=== PATIENT | female | born 1995 | race Hispanic/Latino ===

== ENCOUNTER 2019-02-07 01:22 | Inpatient (IN) | payer OTHER ==
[~2019-02-07] VITALS: Ht 157.5 cm; Wt 82.6 kg
[2019-02-07] VITALS (7 sets, daily range): BP systolic 98–140; BP diastolic 57–89
[2019-02-07] MEDS ORDERED: LACTATED RINGERS 1000ML IV PRN (01:45)
[2019-02-07 02:11] LABS: APPEARANCE,URINE Clear (CLEAR); BILIRUBIN,URINE Negative (NEGATIVE); COLOR,URINE Dark Yellow (YELLOW); GLUCOSE, URINE (UA) 250 mg/dL (NEGATIVE); KETONES,URINE Trace mg/dL (NEGATIVE); LEUKOCYTE ESTERASE ,URINE Trace (NEGATIVE); NITRATE,URINE Negative (NEGATIVE); OCCULT BLOOD,URINE Moderate (NEGATIVE); PH,URINE 6.5 (5.0-8.0); PROTEIN,URINE Trace mg/dL (NEGATIVE)
[2019-02-07 02:18] LABS: AMPHET/METH SCREEN,URINE NEGATIVE (NEGATIVE); BACTERIA,URINE None Seen /HPF (None Seen); BARBITURATE SCREEN, URINE NEGATIVE (NEGATIVE); BENZODIAZEPINES SCREEN,URINE NEGATIVE (NEGATIVE); CANNABINOID SCREEN,URINE NEGATIVE (NEGATIVE); COCAINE SCREEN,URINE NEGATIVE (NEGATIVE); OPIATE SCREEN,URINE NEGATIVE (NEGATIVE); PHENCYCLIDINE SCREEN,URINE NEGATIVE (NEGATIVE); RBC,URINE None Seen /HPF (0-1); SQUAMOUS EPITHELIAL CELL,UR Moderate /HPF (0-2)
[2019-02-07] MEDS ORDERED: FOLI0.8C PO (02:54)
[2019-02-07] MEDS ORDERED: LACTATED RINGERS 1000ML 1,000 ML IV PRN (03:06)
[2019-02-07] MEDS ORDERED: AMPICILLIN 2GM+NS 100ML 100 ML IV ONE (03:10)
[2019-02-07] MEDS ORDERED: AMPICILLIN 2GM+NS 100ML 100 ML IV SCH (03:15)
[2019-02-07 04:34] LABS: HEMATOCRIT 40.4 % (36-48); MEAN CORPUSCULAR HEMOGLOBIN 30.1 pg (27.0-33.0); MEAN CORPUSCULAR HGB CONC 34.7 g/dL (32.0-36.0); MEAN CORPUSCULAR VOLUME 86.9 fL (79-99); PLATELET COUNT (AUTO) 265 K/uL (130-400); RED BLOOD CELL COUNT(AUTO) 4.65 MIL/uL (4.00-5.50); RED CELL DISTRIBUTION WIDTH 13.7 % (11.0-15.5); WHITE BLOOD COUNT (AUTO) 10.4 K/uL (4.8-10.8)
[2019-02-07] MEDS ORDERED: CEFAZOLIN SODIUM 1 GM VIAL ONE (05:04)
[2019-02-07] MEDS ORDERED: DURAMORPH PF1 MG/ML 10ML AMP IV ONE (05:33)
[2019-02-07] MEDS ORDERED: FENTANYL CITRATE PF 50 MCG/1 ML 2ML VIAL ONE (05:33)
[2019-02-07] MEDS ORDERED: ONDANSETRON HCL 4 MG/2 ML VIAL ONE (05:47)
[2019-02-07] MEDS ORDERED: OXYTOCIN 10 USP UNITS/ML ONE (05:48)
[2019-02-07] MEDS ORDERED: PHENYLEPHRINE HCL 10 MG/ML 1ML VIAL IV ONE (05:57)
[2019-02-07] MEDS ORDERED: CEFAZOLIN SODIUM 1 GM VIAL IVP SCH (07:00)
[2019-02-07] MEDS ORDERED: SODIUM CHLORIDE 0.9% 10 ML VIAL IVP PRN (07:15)
[2019-02-07] MEDS ORDERED: MEPERIDINE-PF 75 MG/ML SYG IM PRN (07:15)
[2019-02-07] MEDS ORDERED: OXYTOCIN-LR 20 UNITS/1000 ML 1,000 ML IV PRN (07:15)
[2019-02-07] MEDS ORDERED: PROMETHAZINE HCL 25 MG/ML 1ML AMPULE IM PRN (07:15)
[2019-02-07 07:59] LABS: HEMOGLOBIN A1C 5.3 % (4.0-6.0)
[2019-02-07 13:23] LABS: RAPID PLASMA REAGIN NONREACTIVE (NONREACTIVE)
[2019-02-07] MEDS: CEFAZOLIN 3GM /D5W 100ML 100 ML IV SCH ×2 (14:16→21:22)
[2019-02-07] MEDS: DEXTROSE 5 %-0.45 % NACL 1,000 ML IV PRN ×2 (14:16→21:22)
[2019-02-07] MEDS: AMPICILLIN 1GM+NS 50ML 50 ML IV SCH ×2 (19:15→23:15)
[2019-02-07] MEDS ORDERED: MEPERIDINE-PF 25 MG/ML SYG ONE (21:04)
[2019-02-07] MEDS ORDERED: MEPERIDINE-PF 50 MG/ML SYG ONE (21:04)
[2019-02-08 03:17] VITALS: BP 106/67
[2019-02-08] MEDS: DEXTROSE 5 %-0.45 % NACL 1,000 ML IV PRN (05:02)
--- NOTE | 2019-02-08 06:55 | NUR ---
Paredes Catheter : Paredes Catheter discontinued patient advice to call for help the first time she gets up. Patient verbalizes understanding.
[2019-02-08 06:59] LABS: HEMATOCRIT 32.4 % (36-48); MEAN CORPUSCULAR HEMOGLOBIN 29.8 pg (27.0-33.0); MEAN CORPUSCULAR VOLUME 87.8 fL (79-99); PLATELET COUNT (AUTO) 198 K/uL (130-400); RED BLOOD CELL COUNT(AUTO) 3.69 MIL/uL (4.00-5.50); RED CELL DISTRIBUTION WIDTH 13.7 % (11.0-15.5); WHITE BLOOD COUNT (AUTO) 9.3 K/uL (4.8-10.8)
[2019-02-08] MEDS ORDERED: FLU VACC QS2019-20 36MOS UP/PF 60 MCG/0.5 ML ML IM ONE (07:00)
[2019-02-08] MEDS: FLU VACC QS2019-20 36MOS UP/PF 60 MCG/0.5 ML ML IM SCH (07:07)
[2019-02-08 07:22] VITALS: BP 117/67
[2019-02-08 08:11] LABS: HEPATITIS Bs ANTIGEN SCREEN P Negative (Negative)
[2019-02-08] MEDS ORDERED: DIPH,PERTUSS(ACELL),TET VAC/PF 0.5 ML VIAL IM SCH (08:30)
[2019-02-08] MEDS ORDERED: ACETAMINOPHEN-CODEINE 300/30MG TAB PO PRN (08:30)
[2019-02-08] MEDS ORDERED: ACETAMINOPHEN EXTRA STRENGTH 500 MG TABLET PO PRN (08:30)
[2019-02-08] MEDS ORDERED: LANOLIN 30GM OINTMENT TP PRN (08:30)
[2019-02-08] MEDS ORDERED: BISACODYL 10 MG SUPP.RECT RC PRN (08:30)
[2019-02-08] MEDS ORDERED: HYDROCODONE/ACETAMINOPHEN 5/325 MG TAB PO PRN (08:30)
[2019-02-08] MEDS ORDERED: MEASLES/MUMPS/RUBELLA VACCINE, LIVE 0.5 ML/VIAL SQ SCH (08:30)
[2019-02-08] MEDS: SIMETHICONE 80 MG TAB.CHEW PO PRN ×2 (08:54→21:11)
[2019-02-08] MEDS: DOCUSATE SODIUM 100 MG CAP PO SCH ×2 (08:54→21:11)
[2019-02-08] MEDS: IBUPROFEN 600 MG TABLET PO PRN (08:54)
[2019-02-08 11:44] VITALS: BP 110/75
[2019-02-08 15:35] VITALS: BP 104/63
[2019-02-08 19:46] VITALS: BP 119/69
[2019-02-08 23:13] VITALS: BP 112/67
[2019-02-09 03:09] VITALS: BP 119/73
[2019-02-09] MEDS: FLU VACC QS2019-20 36MOS UP/PF 60 MCG/0.5 ML ML IM SCH (06:15)
--- NOTE | 2019-02-09 07:20 | NUR ---
PATIENT ASSESSED AND IS STABLE. DENIES ANY PROBLEMS. INCISION IS OPEN TO AIR WITH KALA. NO REDNESS OR DRAINAGE NOTED TO INCISION.
[2019-02-09 07:49] VITALS: BP 123/78
[2019-02-09] MEDS: DOCUSATE SODIUM 100 MG CAP PO SCH (09:02)
[2019-02-09] MEDS: IBUPROFEN 600 MG TABLET PO PRN (09:02)
[2019-02-09] MEDS: SIMETHICONE 80 MG TAB.CHEW PO PRN (09:02)
[2019-02-09 11:22] VITALS: BP 119/69
--- NOTE | 2019-02-09 12:30 | NUR ---
DR. MILLAN ROUNDED AND DISCHARGED PATIENT TO HOME. PATIENT STABLE AND WILL FOLLOW UP WITH [facility] IN ONE WEEK FOR REMOVAL OF KALA.
--- NOTE | 2019-02-09 15:00 | NUR ---
PATIENT WAS TAKEN VIA W/C CARRYING BABY IN ARMS TO FAMILY VEHICLE. PATIENT STABLE AND DENIES PAIN.
== END 2019-02-09 15:00 | disposition home or self-care (01) | DRG 788 ==
LOC: EDH 01:22 → LDH 01:23 → OBSVTOIN 01:23 → WSH 08:05
PROVIDERS: ADMIT Obstetrics & Gynecology; ATTEND Obstetrics & Gynecology
PROC: 10D00Z1 Extraction of Products of Conception, Low, Open Approach (ICD-10-PCS; principal; 2019-02-07 05:30)
PROC: 3E02340 Introduction of Influenza Vaccine into Muscle, Percutaneous Approach (ICD-10-PCS; 2019-02-08)
PROC: 3E0234Z Introduction of Serum, Toxoid and Vaccine into Muscle, Percutaneous Approach (ICD-10-PCS; 2019-02-08)
PROC: 3E0134Z Introduction of Serum, Toxoid and Vaccine into Subcutaneous Tissue, Percutaneous Approach (ICD-10-PCS; 2019-02-08)
DX: O76 Abnormality in fetal heart rate and rhythm complicating labor and delivery (principal); O77.0 Labor and delivery complicated by meconium in amniotic fluid; O99.214 Obesity complicating childbirth; E66.01 Morbid (severe) obesity due to excess calories; O69.81X0 Labor and delivery complicated by cord around neck, without compression, not applicable or unspecified; Z3A.40 40 weeks gestation of pregnancy; Z37.0 Single live birth; Z23 Encounter for immunization
CPT/HCPCS: 36415; 59510; 80305; 81001; 83036; 85027; 86592; 86701; 86850; 86900; 86901; 87340; 87390; 90707; 90715; A4344; G0008; G0378; J0290; J0690; J2175; J2274; J2370; J2405; J2550; J2590; J3010; J7120; Q2035